=== PATIENT | female | born 1965 | race Caucasian/White ===

== ENCOUNTER 2023-11-05 15:00 | Outpatient (RCR) | payer BC, SELFPAY ==
[2023-10-22 15:21] VITALS: BP 132/77
[2023-10-22] MEDS: XOLAIR 1 MG SC ×3 (15:40)
[2023-11-05 15:36] VITALS: BP 120/90
[2023-11-05] MEDS: XOLAIR 1 MG SC ×3 (15:52)
== END 2023-11-06 10:36 | disposition home or self-care (01) ==
LOC: OID 15:00
PROVIDERS: ATTENDING PHYSICIAN Internal Medicine Critical Care Medicine; FAMILY PHYSICIAN Podiatrist Foot & Ankle Surgery
DX: J45.50 Severe persistent asthma, uncomplicated (principal); J45.40 Moderate persistent asthma, uncomplicated
CPT/HCPCS: 96372; J2357

== ENCOUNTER 2023-12-03 15:00 | Outpatient (RCR) | payer BC, SELFPAY ==
[2023-11-19 15:09] VITALS: BP 117/72
[2023-11-19] MEDS: XOLAIR 1 MG SC ×3 (15:38→15:39)
[2023-12-03 15:13] VITALS: BP 127/78
[2023-12-03] MEDS: XOLAIR 1 MG SC ×3 (15:36→15:37)
== END 2023-12-04 10:40 | disposition home or self-care (01) ==
LOC: OID 15:00
PROVIDERS: ATTENDING PHYSICIAN Internal Medicine Critical Care Medicine; FAMILY PHYSICIAN Podiatrist Foot & Ankle Surgery
DX: J45.50 Severe persistent asthma, uncomplicated (principal); J45.40 Moderate persistent asthma, uncomplicated
CPT/HCPCS: 96372; J2357

== ENCOUNTER 2023-12-30 15:03 | Outpatient (RCR) | payer BC, SELFPAY ==
[2023-12-17 15:03] VITALS: BP 124/81
[2023-12-17] MEDS: XOLAIR 1 MG SC ×3 (15:22)
[2023-12-30 15:13] VITALS: BP 117/75
[2023-12-30] MEDS: XOLAIR 1 MG SC ×3 (15:28→15:29)
== END 2023-12-31 11:31 | disposition home or self-care (01) ==
LOC: OID 15:03
PROVIDERS: ATTENDING PHYSICIAN Internal Medicine Critical Care Medicine; FAMILY PHYSICIAN Podiatrist Foot & Ankle Surgery
DX: J45.40 Moderate persistent asthma, uncomplicated (principal); D72.10 Eosinophilia, unspecified; R76.8 Other specified abnormal immunological findings in serum; L30.9 Dermatitis, unspecified; J41.1 Mucopurulent chronic bronchitis
CPT/HCPCS: 96372; J2357

== ENCOUNTER 2024-02-11 14:59 | Outpatient (RCR) | payer BC, SELFPAY ==
[2024-01-14 15:10] VITALS: BP 120/77
[2024-01-14] MEDS: XOLAIR 1 MG SC ×3 (15:25)
[2024-01-28 15:04] VITALS: BP 118/72
[2024-01-28] MEDS: XOLAIR 1 MG SC ×3 (15:27)
[2024-02-11 15:05] VITALS: BP 127/72
[2024-02-11] MEDS: XOLAIR 1 MG SC ×3 (15:28→15:29)
== END 2024-02-12 10:41 | disposition home or self-care (01) ==
LOC: OID 14:59
PROVIDERS: ATTENDING PHYSICIAN Internal Medicine Critical Care Medicine; FAMILY PHYSICIAN Podiatrist Foot & Ankle Surgery
DX: J45.40 Moderate persistent asthma, uncomplicated (principal); D72.10 Eosinophilia, unspecified; R76.8 Other specified abnormal immunological findings in serum; L30.9 Dermatitis, unspecified; J41.1 Mucopurulent chronic bronchitis
CPT/HCPCS: 96372; J2357

== ENCOUNTER 2024-03-10 14:58 | Outpatient (RCR) | payer BC, SELFPAY ==
[2024-02-25 15:08] VITALS: BP 119/82
[2024-02-25] MEDS: XOLAIR 1 MG SC ×3 (15:22→15:23)
[2024-03-10 15:07] VITALS: BP 127/78
[2024-03-10] MEDS: XOLAIR 1 MG SC ×3 (15:21→15:22)
== END 2024-03-11 10:48 | disposition home or self-care (01) ==
LOC: OID 14:58
PROVIDERS: ATTENDING PHYSICIAN Internal Medicine Critical Care Medicine; FAMILY PHYSICIAN Podiatrist Foot & Ankle Surgery
DX: J45.40 Moderate persistent asthma, uncomplicated (principal); D72.10 Eosinophilia, unspecified; R76.8 Other specified abnormal immunological findings in serum; L30.9 Dermatitis, unspecified; J41.1 Mucopurulent chronic bronchitis
CPT/HCPCS: 96372; J2357

== ENCOUNTER 2024-04-07 14:58 | Outpatient (RCR) | payer BC, SELFPAY ==
[2024-03-24 15:03] VITALS: BP 125/77
[2024-03-24] MEDS: XOLAIR 1 MG SC ×3 (15:18→15:19)
[2024-04-07 15:12] VITALS: BP 120/73
[2024-04-07] MEDS: XOLAIR 1 MG SC ×3 (15:45)
== END 2024-04-08 10:07 | disposition home or self-care (01) ==
LOC: OID 14:58
PROVIDERS: ATTENDING PHYSICIAN Internal Medicine Critical Care Medicine; FAMILY PHYSICIAN Podiatrist Foot & Ankle Surgery
DX: J45.40 Moderate persistent asthma, uncomplicated (principal); D72.10 Eosinophilia, unspecified; R76.8 Other specified abnormal immunological findings in serum; L30.9 Dermatitis, unspecified; J41.1 Mucopurulent chronic bronchitis
CPT/HCPCS: 96372; J2357

== ENCOUNTER 2024-05-05 15:01 | Outpatient (RCR) | payer BC, SELFPAY ==
[2024-04-21 15:10] VITALS: BP 119/73
[2024-04-21] MEDS: XOLAIR 1 MG SC ×3 (15:22→15:23)
[2024-05-05 15:18] VITALS: BP 116/74
[2024-05-05] MEDS: XOLAIR 1 MG SC ×3 (15:43→15:44)
== END 2024-05-13 15:11 | disposition home or self-care (01) ==
LOC: OID 15:01
PROVIDERS: ATTENDING PHYSICIAN Internal Medicine Critical Care Medicine; FAMILY PHYSICIAN Podiatrist Foot & Ankle Surgery
DX: J45.40 Moderate persistent asthma, uncomplicated (principal); D72.10 Eosinophilia, unspecified; R76.8 Other specified abnormal immunological findings in serum; L30.9 Dermatitis, unspecified; J41.1 Mucopurulent chronic bronchitis
CPT/HCPCS: 96372; J2357

== ENCOUNTER 2024-06-02 15:03 | Outpatient (RCR) | payer BC, SELFPAY ==
[2024-05-21 15:00] VITALS: BP 116/76
[2024-05-21] MEDS: XOLAIR 1 MG SC ×3 (15:26→15:27)
[2024-06-02 15:14] VITALS: BP 117/78
[2024-06-02] MEDS: XOLAIR 1 MG SC ×3 (15:32→15:33)
== END 2024-06-03 10:03 | disposition home or self-care (01) ==
LOC: OID 15:03
PROVIDERS: ATTENDING PHYSICIAN Internal Medicine Critical Care Medicine; FAMILY PHYSICIAN Podiatrist Foot & Ankle Surgery
DX: J45.40 Moderate persistent asthma, uncomplicated (principal); D72.10 Eosinophilia, unspecified; R76.8 Other specified abnormal immunological findings in serum; L30.9 Dermatitis, unspecified; J41.1 Mucopurulent chronic bronchitis
CPT/HCPCS: 96372; J2357

== ENCOUNTER 2024-07-14 14:59 | Outpatient (RCR) | payer BC, SELFPAY ==
[2024-06-16 15:05] VITALS: BP 109/71
[2024-06-16] MEDS: XOLAIR 1 MG SC ×3 (15:23→15:24)
[2024-06-30 15:06] VITALS: BP 105/82
[2024-06-30] MEDS: XOLAIR 1 MG SC ×3 (15:26→15:27)
[2024-07-14 15:07] VITALS: BP 116/78
[2024-07-14] MEDS: XOLAIR 1 MG SC ×3 (15:23→15:24)
== END 2024-07-15 11:04 | disposition home or self-care (01) ==
LOC: OID 14:59
PROVIDERS: ATTENDING PHYSICIAN Internal Medicine Critical Care Medicine; FAMILY PHYSICIAN Podiatrist Foot & Ankle Surgery
DX: J45.40 Moderate persistent asthma, uncomplicated (principal); D72.10 Eosinophilia, unspecified; R76.8 Other specified abnormal immunological findings in serum; L30.9 Dermatitis, unspecified; J41.1 Mucopurulent chronic bronchitis
CPT/HCPCS: 96372; J2357

== ENCOUNTER 2024-08-11 14:00 | Outpatient (RCR) | payer BC, SELFPAY ==
[2024-07-28 15:19] VITALS: BP 113/68
[2024-07-28] MEDS: XOLAIR 1 MG SC ×3 (15:27)
[2024-08-11 14:19] VITALS: BP 119/74
[2024-08-11 14:24] VITALS: BP 119/74
[2024-08-11] MEDS: XOLAIR 1 MG SC ×3 (14:31→14:32)
== END 2024-08-13 09:47 | disposition home or self-care (01) ==
LOC: OID 14:00
PROVIDERS: ATTENDING PHYSICIAN Internal Medicine Critical Care Medicine; FAMILY PHYSICIAN Podiatrist Foot & Ankle Surgery
DX: J45.40 Moderate persistent asthma, uncomplicated (principal); D72.10 Eosinophilia, unspecified; J41.1 Mucopurulent chronic bronchitis; R76.8 Other specified abnormal immunological findings in serum; L30.9 Dermatitis, unspecified
CPT/HCPCS: 96372; J2357

== ENCOUNTER 2024-09-09 14:46 | Outpatient (RCR) | payer BC, SELFPAY ==
[2024-08-25 15:04] VITALS: BP 114/66
[2024-08-25] MEDS: XOLAIR 1 MG SC ×3 (15:22→15:23)
[2024-09-09 14:53] VITALS: BP 120/77
[2024-09-09] MEDS: XOLAIR 1 MG SC ×3 (15:22→15:23)
== END 2024-09-10 09:57 | disposition home or self-care (01) ==
LOC: OID 14:46
PROVIDERS: ATTENDING PHYSICIAN Internal Medicine Critical Care Medicine; FAMILY PHYSICIAN Podiatrist Foot & Ankle Surgery
DX: J45.40 Moderate persistent asthma, uncomplicated (principal); D72.10 Eosinophilia, unspecified; R76.8 Other specified abnormal immunological findings in serum; J41.1 Mucopurulent chronic bronchitis; L30.9 Dermatitis, unspecified
CPT/HCPCS: 96372; J2357

== ENCOUNTER 2024-10-06 14:59 | Outpatient (RCR) | payer BC, SELFPAY ==
[2024-09-20 13:40] VITALS: BP 111/71
[2024-09-20] MEDS: XOLAIR 1 MG SC ×3 (14:10)
[2024-10-06 15:13] VITALS: BP 118/75
[2024-10-06] MEDS: XOLAIR 1 MG SC ×3 (15:25)
== END 2024-10-07 10:23 | disposition home or self-care (01) ==
LOC: OID 14:59
PROVIDERS: ATTENDING PHYSICIAN Internal Medicine Critical Care Medicine; FAMILY PHYSICIAN Podiatrist Foot & Ankle Surgery
DX: J45.40 Moderate persistent asthma, uncomplicated (principal); D72.10 Eosinophilia, unspecified; J41.1 Mucopurulent chronic bronchitis; R76.8 Other specified abnormal immunological findings in serum; L30.9 Dermatitis, unspecified
CPT/HCPCS: 96372; J2357

== ENCOUNTER 2024-11-03 14:56 | Outpatient (RCR) | payer BC, SELFPAY ==
[2024-10-20 15:12] VITALS: BP 116/79
[2024-10-20] MEDS: XOLAIR 1 MG SC ×3 (15:32→15:33)
[2024-11-03 15:06] VITALS: BP 105/63
[2024-11-03] MEDS: XOLAIR 1 MG SC ×3 (15:24→15:25)
== END 2024-11-04 09:08 | disposition home or self-care (01) ==
LOC: OID 14:56
PROVIDERS: ATTENDING PHYSICIAN Internal Medicine Critical Care Medicine; FAMILY PHYSICIAN Podiatrist Foot & Ankle Surgery
DX: J45.40 Moderate persistent asthma, uncomplicated (principal); D72.10 Eosinophilia, unspecified; J41.1 Mucopurulent chronic bronchitis; R76.8 Other specified abnormal immunological findings in serum; L30.9 Dermatitis, unspecified
CPT/HCPCS: 96372; J2357

== ENCOUNTER 2024-12-01 14:48 | Outpatient (RCR) | payer BC, SELFPAY ==
[2024-11-17 15:06] VITALS: BP 114/65
[2024-11-17] MEDS: XOLAIR 1 MG SC ×3 (15:16→15:23)
[2024-12-01 15:01] VITALS: BP 121/70
[2024-12-01] MEDS: XOLAIR 1 MG SC ×3 (15:19)
== END 2024-12-02 10:23 | disposition home or self-care (01) ==
LOC: OID 14:48
PROVIDERS: ATTENDING PHYSICIAN Internal Medicine Critical Care Medicine; FAMILY PHYSICIAN Podiatrist Foot & Ankle Surgery
DX: J45.40 Moderate persistent asthma, uncomplicated (principal); D72.10 Eosinophilia, unspecified; J41.1 Mucopurulent chronic bronchitis; R76.8 Other specified abnormal immunological findings in serum; L30.9 Dermatitis, unspecified
CPT/HCPCS: 96372; J2357

== ENCOUNTER 2025-01-12 14:58 | Outpatient (RCR) | payer BC, SELFPAY ==
[2024-12-27 15:27] VITALS: BP 122/80
[2024-12-27] MEDS: XOLAIR 1 MG SC ×3 (15:35→15:37)
[2025-01-12 15:09] VITALS: BP 125/75
[2025-01-12] MEDS: XOLAIR 1 MG SC ×3 (15:25→15:26)
== END 2025-01-12 23:59 | disposition home or self-care (01) ==
LOC: OID 14:58
PROVIDERS: ATTENDING PHYSICIAN Internal Medicine Critical Care Medicine; FAMILY PHYSICIAN Podiatrist Foot & Ankle Surgery
DX: J45.40 Moderate persistent asthma, uncomplicated (principal); D72.10 Eosinophilia, unspecified; J41.1 Mucopurulent chronic bronchitis; R76.8 Other specified abnormal immunological findings in serum; L30.9 Dermatitis, unspecified
CPT/HCPCS: 96372; J2357

== ENCOUNTER 2025-02-09 16:14 | Outpatient (RCR) | payer BC, SELFPAY ==
[2025-01-26 15:06] VITALS: BP 125/77
[2025-01-26] MEDS: XOLAIR 1 MG SC ×3 (15:28)
[2025-02-09 15:40] VITALS: BP 114/70
[2025-02-09] MEDS: XOLAIR 1 MG SC ×3 (15:45)
--- NOTE | 2025-02-09 16:28 | DOWNTIME ---
There was a [employer] Downtime on 02/09/2025 from 1230 to 02/09/2025 at 1550. Downtime documentation of patient's care, including medication administrations, has been reconciled in the electronic record per guidelines. Refer to the
patient's paper chart under the miscellaneous tab to see printed paper medication records and downtime forms.
== END 2025-02-10 09:56 | disposition home or self-care (01) ==
LOC: OID 16:14
PROVIDERS: ATTENDING PHYSICIAN Internal Medicine Critical Care Medicine; FAMILY PHYSICIAN Podiatrist Foot & Ankle Surgery
DX: J45.40 Moderate persistent asthma, uncomplicated (principal); D72.10 Eosinophilia, unspecified; J41.1 Mucopurulent chronic bronchitis; R76.8 Other specified abnormal immunological findings in serum; L30.9 Dermatitis, unspecified
CPT/HCPCS: 96372; J2357

== ENCOUNTER 2025-03-11 14:59 | Outpatient (RCR) | payer BC, SELFPAY ==
[2025-02-23 15:13] VITALS: BP 122/71
[2025-02-23] MEDS: XOLAIR 1 MG SC ×3 (15:30)
[2025-03-11 15:10] VITALS: BP 120/70
[2025-03-11] MEDS: XOLAIR 1 MG SC ×3 (15:35→15:36)
== END 2025-03-14 08:50 | disposition home or self-care (01) ==
LOC: OID 14:59
PROVIDERS: ATTENDING PHYSICIAN Internal Medicine Critical Care Medicine; FAMILY PHYSICIAN Podiatrist Foot & Ankle Surgery
DX: J45.40 Moderate persistent asthma, uncomplicated (principal); D72.10 Eosinophilia, unspecified; J41.1 Mucopurulent chronic bronchitis; R76.8 Other specified abnormal immunological findings in serum; L30.9 Dermatitis, unspecified
CPT/HCPCS: 96372; J2357

== ENCOUNTER 2025-04-06 15:00 | Outpatient (RCR) | payer BC, SELFPAY ==
[2025-03-23 15:03] VITALS: BP 111/71
[2025-03-23] MEDS: XOLAIR 1 MG SC ×3 (15:22→15:23)
[2025-04-06 15:20] VITALS: BP 111/64
[2025-04-06] MEDS: XOLAIR 1 MG SC ×3 (15:33)
== END 2025-04-07 08:53 | disposition home or self-care (01) ==
LOC: OID 15:00
PROVIDERS: ATTENDING PHYSICIAN Internal Medicine Critical Care Medicine; FAMILY PHYSICIAN Podiatrist Foot & Ankle Surgery
DX: J45.40 Moderate persistent asthma, uncomplicated (principal); D72.10 Eosinophilia, unspecified; J41.1 Mucopurulent chronic bronchitis; R76.8 Other specified abnormal immunological findings in serum; L30.9 Dermatitis, unspecified
CPT/HCPCS: 96372; J2357

== ENCOUNTER 2025-05-04 15:00 | Outpatient (RCR) | payer BC, SELFPAY ==
[2025-04-20 15:15] VITALS: BP 117/63
[2025-04-20] MEDS: XOLAIR 1 MG SC ×3 (15:38→15:39)
[2025-05-04 15:00] VITALS: BP 121/70
[2025-05-04] MEDS: XOLAIR 1 MG SC ×3 (15:25→15:26)
== END 2025-05-05 08:26 | disposition home or self-care (01) ==
LOC: OID 15:00
PROVIDERS: ATTENDING PHYSICIAN Internal Medicine Critical Care Medicine; FAMILY PHYSICIAN Podiatrist Foot & Ankle Surgery
DX: J45.40 Moderate persistent asthma, uncomplicated (principal); D72.10 Eosinophilia, unspecified; J41.1 Mucopurulent chronic bronchitis; R76.8 Other specified abnormal immunological findings in serum; L30.9 Dermatitis, unspecified
CPT/HCPCS: 96372; J2357

== ENCOUNTER 2025-06-01 15:01 | Outpatient (RCR) | payer BC, SELFPAY ==
[2025-05-18 15:17] VITALS: BP 126/74
[2025-05-18] MEDS: XOLAIR 1 MG SC ×3 (15:31→15:32)
[2025-06-01 15:06] VITALS: BP 120/66
[2025-06-01] MEDS: XOLAIR 1 MG SC ×3 (15:22→15:23)
== END 2025-06-02 08:00 | disposition home or self-care (01) ==
LOC: OID 15:01
PROVIDERS: ATTENDING PHYSICIAN Internal Medicine Critical Care Medicine; FAMILY PHYSICIAN Podiatrist Foot & Ankle Surgery
DX: J45.40 Moderate persistent asthma, uncomplicated (principal); D72.10 Eosinophilia, unspecified; J41.1 Mucopurulent chronic bronchitis; R76.8 Other specified abnormal immunological findings in serum; L30.9 Dermatitis, unspecified
CPT/HCPCS: 96372; J2357

== ENCOUNTER 2025-07-13 15:06 | Outpatient (RCR) | payer BC, SELFPAY ==
[2025-06-15 15:07] VITALS: BP 118/73
[2025-06-15] MEDS: XOLAIR 1 MG SC ×3 (15:29→15:30)
[2025-06-29 15:13] VITALS: BP 112/70
[2025-06-29] MEDS: XOLAIR 1 MG SC ×3 (15:26→15:27)
[2025-07-13 15:16] VITALS: BP 111/63
[2025-07-13] MEDS: XOLAIR 1 MG SC ×3 (15:32→15:33)
== END 2025-07-15 23:59 | disposition home or self-care (01) ==
LOC: OID 15:06
PROVIDERS: ATTENDING PHYSICIAN Internal Medicine Critical Care Medicine; FAMILY PHYSICIAN Podiatrist Foot & Ankle Surgery
DX: J45.40 Moderate persistent asthma, uncomplicated (principal); D72.10 Eosinophilia, unspecified; J41.1 Mucopurulent chronic bronchitis; R76.8 Other specified abnormal immunological findings in serum; L30.9 Dermatitis, unspecified; D84.9 Immunodeficiency, unspecified; I71.20 Thoracic aortic aneurysm, without rupture, unspecified
CPT/HCPCS: 96372; J2357

== ENCOUNTER 2025-08-10 13:38 | Outpatient (RCR) | payer BC, SELFPAY ==
[2025-07-27 15:15] VITALS: BP 110/67
[2025-07-27] MEDS: XOLAIR 1 MG SC ×3 (15:33)
[2025-08-10 14:00] VITALS: BP 110/75
[2025-08-10] MEDS: XOLAIR 1 MG SC ×3 (14:06→14:07)
== END 2025-08-12 10:33 | disposition home or self-care (01) ==
LOC: OID 13:38
PROVIDERS: ATTENDING PHYSICIAN Internal Medicine Critical Care Medicine; FAMILY PHYSICIAN Podiatrist Foot & Ankle Surgery
DX: J45.40 Moderate persistent asthma, uncomplicated (principal); D72.10 Eosinophilia, unspecified; J41.1 Mucopurulent chronic bronchitis; L30.9 Dermatitis, unspecified; I71.20 Thoracic aortic aneurysm, without rupture, unspecified
CPT/HCPCS: 96372; J2357

== ENCOUNTER 2025-09-06 13:34 | Outpatient (RCR) | payer BC, SELFPAY ==
[2025-08-24 13:56] VITALS: BP 123/72
[2025-08-24] MEDS: XOLAIR 1 MG SC ×3 (14:11)
[2025-09-06 13:54] VITALS: BP 137/68
[2025-09-06 14:04] VITALS: BP 120/71
[2025-09-06] MEDS: XOLAIR 1 MG SC ×3 (14:24→14:25)
== END 2025-09-07 09:20 | disposition home or self-care (01) ==
LOC: OID 13:34
PROVIDERS: ATTENDING PHYSICIAN Internal Medicine Critical Care Medicine; FAMILY PHYSICIAN Podiatrist Foot & Ankle Surgery
DX: J45.40 Moderate persistent asthma, uncomplicated (principal); D72.10 Eosinophilia, unspecified; L30.9 Dermatitis, unspecified; J41.1 Mucopurulent chronic bronchitis; D84.9 Immunodeficiency, unspecified; I71.20 Thoracic aortic aneurysm, without rupture, unspecified
CPT/HCPCS: 96372; J2357